=== PATIENT | female | born 1965 | race Caucasian/White ===

== ENCOUNTER 2024-03-01 08:20 | Emergency (ER) | payer BC ==
[2024-03-01] MEDS ORDERED: HYDROcodone/Acetaminophen 5/325 mg Tablet ONE (08:43)
[2024-03-01] MEDS ORDERED: Ibuprofen 800 MG TAB ONE (08:43)
== END 2024-03-01 09:50 | disposition home or self-care (01) ==
LOC: MADERS 08:20
DX: S92.321A Displaced fracture of second metatarsal bone, right foot, initial encounter for closed fracture (principal); W18.30XA Fall on same level, unspecified, initial encounter
CPT/HCPCS: 99283

== ENCOUNTER 2024-03-08 11:39 | Outpatient (CLI) | payer BC | END 2024-03-08 11:40 | disposition home or self-care (01) | LOC: MADLAB 11:39 | PROVIDERS: ATTEND Family Medicine | DX: S92.324A Nondisplaced fracture of second metatarsal bone, right foot, initial encounter for closed fracture (principal) ==